=== PATIENT | male | born 1955 | race Caucasian/White ===

== ENCOUNTER 2017-05-29 08:31 | Day surgery (SDC) | payer OTHER ==
[2017-05-28 11:52] VITALS: BP 139/89
[2017-05-28 12:26] LABS: HEMATOCRIT 50.1 % (39.2-51.8); WHITE BLOOD COUNT 8.2 x10^3/uL (3.4-10)
[2017-05-28 12:34] LABS: BLOOD UREA NITROGEN 14 mg/dL (7-18)
[~2017-05-29] VITALS: Ht 170.2 cm; Wt 96.2 kg
[~2017-05-29 08:31] MED LIST: ASPI-621 PO; ATOR40TA78 PO; CHLO25TA PO; CHOL200024 PO; VALS80TA3 PO
[2017-05-29] MEDS ORDERED: SODIUM CHLORIDE 0.9% 1,000 ML IV ONE (08:41)
[2017-05-29] MEDS ORDERED: FENTANYL PF 100 MCG/2ML ONE (09:58)
[2017-05-29] MEDS ORDERED: MIDAZOLAM 1 MG/ML, 5ML ONE (09:58)
[2017-05-29] MEDS ORDERED: LIDOCAINE 2%, 20ML ONE (09:59)
[2017-05-29] MEDS ORDERED: SODIUM CHLORIDE 0.9% 1,000 ML IV SCH (10:50)
== END 2017-05-29 15:43 | disposition home or self-care (01) ==
LOC: CACL 08:31
PROVIDERS: ATTEND Internal Medicine Cardiovascular Disease
DX: I25.10 Atherosclerotic heart disease of native coronary artery without angina pectoris (principal); Z95.2 Presence of prosthetic heart valve; E78.5 Hyperlipidemia, unspecified; Z79.82 Long term (current) use of aspirin; Z88.0 Allergy status to penicillin; E66.01 Morbid (severe) obesity due to excess calories
CPT/HCPCS: 36415; 80048; 85025; 93454; 99156; 99157; C1769; C1894; J2250; J3010; J3490; Q9967

== ENCOUNTER 2017-07-11 04:38 | Inpatient (IN) | payer OTHER ==
[2017-07-10 14:18] LABS: BASOPHILS # (AUTO) 0.07 x10^3/uL (0-0.1); BASOPHILS % (AUTO) 1 % (0-1); EOSINOPHILS # (AUTO) 0.08 x10^3/uL (0-0.4); EOSINOPHILS % (AUTO) 1 % (1-7); LYMPHOCYTES # (AUTO) 2.91 x10^3/uL (1-3.4); LYMPHOCYTES % (AUTO) 29 % (22-44); MD NO; MEAN CORPUSCULAR HEMOGLOBIN 31.7 pg (27.5-34.5); MEAN CORPUSCULAR HGB CONC 33.7 g/dL (33.2-36.2); MEAN PLATELET VOLUME 8.4 fL (7.4-10.4); MONOCYTES # (AUTO) 0.71 x10^3/uL (0.2-0.8); MONOCYTES % (AUTO) 7 % (2-9); NEUTROPHILS # (AUTO) 6.25 x10^3/uL (1.8-6.8); NEUTROPHILS % (AUTO) 62 % (42-75); PLATELET COUNT 268 x10^3/uL (130-400); RED BLOOD COUNT 5.05 x10^6/uL (4.38-5.82); RED CELL DISTRIBUTION WIDTH 14.2 % (9.4-14.8)
[2017-07-10 14:26] LABS: INTERNATIONAL NORMALIZED RATIO 0.96 (0.93-1.1)
[2017-07-10 14:31] LABS: ALBUMIN 4.1 g/dL (3.4-5.0); ANION GAP 8 mmol/L (5-15); CALCIUM 9.3 mg/dL (8.5-10.1); CHLORIDE 101 mmol/L (98-107)
[2017-07-10 14:34] LABS: ALANINE AMINOTRANSFERASE 59 U/L (12-78); ALKALINE PHOSPHATASE 55 U/L (45-117); BILIRUBIN,TOTAL 0.7 mg/dL (0.2-1.0); CREATININE 0.98 mg/dL (0.7-1.3); TOTAL PROTEIN 7.8 g/dL (6.4-8.2)
[2017-07-10 14:34] LABS: MICROSCOPIC NOT IND
[2017-07-10 15:02] LABS: HEMOGLOBIN A1C 5.7 % (4.2-6.3)
[~2017-07-11] VITALS: Ht 170.2 cm; Wt 97.9 kg
[~2017-07-11 04:38] MED LIST changes: +LORA-856 PO
[2017-07-11] MEDS ORDERED: CHLORHEXIDINE MOUTHWASH 15 ML UDC MM SCH (05:00)
[2017-07-11] MEDS ORDERED: DO NOT GIVE MC SCH (05:00)
[2017-07-11 05:42] VITALS: BP_SYST 132; BP_SYST 133; BP_DIAS 81; BP_DIAS 85
[2017-07-11] MEDS ORDERED: INSULIN ASPART 100 UNITS/ML, PEN SQ-INSULIN SCH (06:00)
[2017-07-11] MEDS ORDERED: MIDAZOLAM 10MG/2 ML ONE (06:29)
[2017-07-11] MEDS ORDERED: FENTANYL PF 1000 MCG/20ML ONE (06:29)
[2017-07-11] MEDS ORDERED: POTASSIUM CHLORIDE 80 MEQ, SODIUM BICARBONATE 8.4% 10 MEQ, MAGNESIUM SULFATE 0.5 GM, LI... IV PRN (07:30)
[2017-07-11] MEDS ORDERED: MANNITOL PMX 20% 500 ML IVPB PRN (07:30)
[2017-07-11] MEDS ORDERED: VANCOMYCIN 1,400 MG in SODIUM CHLORIDE 0.9% 250 ML IV PRN (07:30)
[2017-07-11] MEDS ORDERED: DEXMEDETOMIDINE 200 MCG in SODIUM CHLORIDE 0.9% 48 ML IV SCH (07:30)
[2017-07-11] MEDS ORDERED: REGULAR INSULIN 62.5 UNITS in SODIUM CHLORIDE 0.9% 249.375 ML IV PRN ×2 (07:30→10:02)
[2017-07-11] MEDS ORDERED: ALBUMIN HUMAN 5% 500 ML IV PRN (07:30)
[2017-07-11] MEDS ORDERED: EPINEPHRINE 2 MG in SODIUM CHLORIDE 0.9% 248 ML IV SCH (07:30)
[2017-07-11] MEDS ORDERED: PHENYLEPHRINE 10 MG in SODIUM CHLORIDE 0.9% 249 ML IV PRN (07:30)
[2017-07-11] MEDS ORDERED: MUPIROCIN OINT 2%, 22GM TP SCH (09:00)
[2017-07-11] MEDS ORDERED: DOCUSATE 100 MG CAPSULE PO SCH (09:00)
[2017-07-11] MEDS ORDERED: SODIUM CHLORIDE FLUSH 10ML SYR IVF SCH (09:00)
[2017-07-11] MEDS ORDERED: EPINEPHRINE 1 MG/ML, 1ML ONE (09:37)
[2017-07-11] MEDS ORDERED: ROCURONIUM 10 MG/ML,10ML ONE (09:37)
[2017-07-11] MEDS ORDERED: PHENYLEPHRINE 10 MG/ML ONE ×3 (09:37→10:24)
[2017-07-11] MEDS ORDERED: PROTAMINE SULFATE 10 MG/ML, 25ML ONE ×2 (09:37)
[2017-07-11] MEDS ORDERED: PROPOFOL 10 MG/ML, 20ML ONE (09:37)
[2017-07-11] MEDS ORDERED: FENTANYL PF 250 MCG/5ML ONE (09:37)
[2017-07-11] MEDS ORDERED: SODIUM CHLORIDE 0.9% 1,000 ML IV PRN (10:02)
[2017-07-11] MEDS ORDERED: DEXMEDETOMIDINE 200 MCG in SODIUM CHLORIDE 0.9% 48 ML IV PRN (10:02)
[2017-07-11] MEDS ORDERED: NITROGLYCERIN/D5W PMX 240 ML IV PRN (10:02)
[2017-07-11] MEDS ORDERED: DOBUTAMINE 250 MG in SODIUM CHLORIDE 0.9% 230 ML IV PRN (10:02)
[2017-07-11] MEDS ORDERED: VASOPRESSIN 50 UNIT in SODIUM CHLORIDE 0.9% 250 ML IV PRN (10:02)
[2017-07-11] MEDS ORDERED: methylPREDNISolone SOD SUCC 125 MG/2 ML ONE (10:24)
[2017-07-11] MEDS ORDERED: LIDOCAINE 2% 100MG/5ML SYRINGE ONE (10:24)
[2017-07-11] MEDS ORDERED: SODIUM BICARB 8.4%, 50ML SYRINGE ONE (10:24)
[2017-07-11] MEDS ORDERED: ALBUMIN HUMAN 25% 50 ML ONE (10:25)
[2017-07-11] MEDS ORDERED: HEPARIN 1,000 UNITS/ML, 30ML ONE (10:25)
[2017-07-11 10:27] LABS: FIO2 60 %; GLUCOSE BY BLOOD GAS ANALYZER 156 mg/dL (70-110); HEMOGLOBIN BY BLOOD GAS ANALYZ 12.3 g/dL (14.0-18.0); POTASSIUM BY BLOOD GAS ANALYZR 3.6 mmol/L (3.6-5.5)
[2017-07-11] MEDS ORDERED: GLUCAGON 1 MG IM PRN (10:30)
[2017-07-11] MEDS ORDERED: INSULIN REGULAR 100 UNITS/ML, 3ML VIAL IVPush PRN (10:30)
[2017-07-11] MEDS ORDERED: BISACODYL 10 MG SUPP PR PRN (10:30)
[2017-07-11] MEDS ORDERED: SODIUM BICARB 8.4%, 50ML SYRINGE IV PRN (10:30)
[2017-07-11] MEDS ORDERED: DEXTROSE 4 GM TAB.CHEW PO PRN (10:30)
[2017-07-11] MEDS ORDERED: OXYcodone IR 5MG TABLET PO PRN (10:30)
[2017-07-11] MEDS ORDERED: morphine SULFATE 10 MG/ML, 1ML IVPush PRN (10:30)
[2017-07-11] MEDS ORDERED: DEXTROSE 50%, 50ML SYRINGE IVPush PRN (10:30)
[2017-07-11] MEDS ORDERED: ACETAMINOPHEN 650 MG SUPP PR PRN (10:30)
[2017-07-11] MEDS ORDERED: EPINEPHRINE 2 MG in SODIUM CHLORIDE 0.9% 248 ML IV PRN (10:30)
[2017-07-11] MEDS ORDERED: ONDANSETRON 2MG/ML, 2ML IVPush PRN (10:30)
[2017-07-11] MEDS ORDERED: ACETAMINOPHEN 325 MG TABLET PO PRN (10:30)
[2017-07-11] MEDS ORDERED: PROCHLORPERAZINE 5 MG/ML, 2ML IVPush PRN (10:30)
[2017-07-11] MEDS ORDERED: MIDAZOLAM 1 MG/ML, 5ML IVPush PRN (10:30)
[2017-07-11] MEDS ORDERED: BISACODYL 5 MG EC TABLET PO PRN (10:30)
[2017-07-11] MEDS: MAGNESIUM SULFATE 1 GM in SODIUM CHLORIDE 0.9% 50 ML IVPB SCH (10:56)
[2017-07-11] MEDS ORDERED: POTASSIUM CHLORIDE PMX 100 ML IV ONE ×2 (11:00→23:00)
[2017-07-11] MEDS: INSULIN ASPART 100 UNITS/ML, PEN SQ-INSULIN SCH ×3 (11:00→21:00)
[2017-07-11] MEDS: KSCALE TO 4.5 IV SCH ×3 (11:32→22:30)
[2017-07-11] MEDS: WARFARIN MODERAT DOSE PROTOCOL XX SCH (12:00)
[2017-07-11] MEDS: LACTATED RINGERS 1,000 ML IV PRN ×3 (12:38→20:45)
[2017-07-11] MEDS: HYDROcodone/APAP 10/325 MG TABLET PO PRN ×2 (15:34→19:47)
[2017-07-11] MEDS: VANCOMYCIN 1,500 MG in SODIUM CHLORIDE 0.9% 250 ML IV SCH (19:47)
[2017-07-11] MEDS: SODIUM CHLORIDE FLUSH 10ML SYR IVF SCH (20:22)
[2017-07-11] MEDS: MUPIROCIN OINT 2%, 22GM NAS SCH (20:23)
[2017-07-11] MEDS: KETOROLAC 30 MG/1 ML IVPush PRN (23:43)
[2017-07-12] MEDS ORDERED: INSULIN NPH HUMAN 100 UNIT/ML, 3ML VIAL SQ-INSULIN PRN (00:30)
[2017-07-12] MEDS ORDERED: INSULIN ASPART 100 UNITS/ML, PEN SQ-INSULIN PRN (01:00)
[2017-07-12] MEDS: HYDROcodone/APAP 10/325 MG TABLET PO PRN ×3 (04:23→20:56)
[2017-07-12] MEDS: KSCALE TO 4.5 IV SCH (04:30)
[2017-07-12 04:54] LABS: BASOPHILS # (AUTO) 0.03 x10^3/uL (0-0.1); BASOPHILS % (AUTO) 0 % (0-1); EOSINOPHILS % (AUTO) 0 % (1-7); LYMPHOCYTES # (AUTO) 1.01 x10^3/uL (1-3.4); LYMPHOCYTES % (AUTO) 7 % (22-44); MD NO; MEAN CORPUSCULAR HEMOGLOBIN 32.1 pg (27.5-34.5); MEAN CORPUSCULAR HGB CONC 34.1 g/dL (33.2-36.2); MEAN CORPUSCULAR VOLUME 94.1 fL (81-97); MEAN PLATELET VOLUME 8.9 fL (7.4-10.4); MONOCYTES # (AUTO) 0.86 x10^3/uL (0.2-0.8); MONOCYTES % (AUTO) 6 % (2-9); NEUTROPHILS # (AUTO) 12.35 x10^3/uL (1.8-6.8); NEUTROPHILS % (AUTO) 87 % (42-75); PLATELET COUNT 149 x10^3/uL (130-400); RED BLOOD COUNT 4.21 x10^6/uL (4.38-5.82); RED CELL DISTRIBUTION WIDTH 13.9 % (9.4-14.8)
[2017-07-12 04:56] LABS: INTERNATIONAL NORMALIZED RATIO 1.03 (0.93-1.1); PROTHROMBIN TIME 10.7 Seconds (9.6-11.5)
[2017-07-12 05:05] LABS: ALBUMIN 3.4 g/dL (3.4-5.0); ANION GAP 7 mmol/L (5-15); CALCIUM 8.2 mg/dL (8.5-10.1); CHLORIDE 106 mmol/L (98-107); CREATININE 0.63 mg/dL (0.7-1.3)
[2017-07-12] MEDS: KETOROLAC 30 MG/1 ML IVPush PRN ×2 (05:50→15:41)
[2017-07-12] MEDS ORDERED: POTASSIUM CHLORIDE PMX 100 ML IV ONE (06:00)
[2017-07-12] MEDS: INSULIN ASPART 100 UNITS/ML, PEN SQ-INSULIN SCH ×4 (07:00→20:53)
[2017-07-12] MEDS: VANCOMYCIN 1,500 MG in SODIUM CHLORIDE 0.9% 250 ML IV SCH (08:36)
[2017-07-12] MEDS: ASPIRIN 81 MG TABLET EC PO SCH (08:36)
[2017-07-12] MEDS: MUPIROCIN OINT 2%, 22GM NAS SCH ×2 (08:36→20:56)
[2017-07-12] MEDS: METOPROLOL TARTRATE 25 MG TABLET PO/NG SCH ×2 (08:37→20:54)
[2017-07-12] MEDS: WARFARIN BIOPROSTHETIC VALVE PROTOCOL 2-3 XX SCH (08:37)
[2017-07-12] MEDS: SODIUM CHLORIDE FLUSH 10ML SYR IVF SCH ×2 (08:38→20:56)
[2017-07-12] MEDS: MAGNESIUM SULFATE 1 GM in SODIUM CHLORIDE 0.9% 50 ML IVPB SCH (10:47)
[2017-07-12] MEDS: WARFARIN MODERAT DOSE PROTOCOL XX SCH (12:00)
[2017-07-12 14:36] VITALS: BP 103/70
[2017-07-12] MEDS ORDERED: WARFARIN 7.5 MG TABLET PO-COUM ONE (18:00)
[2017-07-12 18:34] VITALS: BP 103/67
[2017-07-12] MEDS: CHLORHEXIDINE MOUTHWASH 15 ML UDC MM SCH (21:15)
[2017-07-13 01:27] VITALS: BP 112/74
[2017-07-13] MEDS: HYDROcodone/APAP 10/325 MG TABLET PO PRN (01:47)
[2017-07-13 05:59] LABS: INTERNATIONAL NORMALIZED RATIO 0.93 (0.93-1.1); PROTHROMBIN TIME 9.7 Seconds (9.6-11.5)
[2017-07-13 06:00] LABS: BASOPHILS # (AUTO) 0.03 x10^3/uL (0-0.1); BASOPHILS % (AUTO) 0 % (0-1); EOSINOPHILS # (AUTO) 0.02 x10^3/uL (0-0.4); EOSINOPHILS % (AUTO) 0 % (1-7); LYMPHOCYTES # (AUTO) 1.98 x10^3/uL (1-3.4); LYMPHOCYTES % (AUTO) 19 % (22-44); MD NO; MEAN CORPUSCULAR HEMOGLOBIN 31.9 pg (27.5-34.5); MEAN CORPUSCULAR HGB CONC 33.8 g/dL (33.2-36.2); MEAN CORPUSCULAR VOLUME 94.6 fL (81-97); MEAN PLATELET VOLUME 8.8 fL (7.4-10.4); MONOCYTES # (AUTO) 0.66 x10^3/uL (0.2-0.8); MONOCYTES % (AUTO) 6 % (2-9); NEUTROPHILS # (AUTO) 7.83 x10^3/uL (1.8-6.8); NEUTROPHILS % (AUTO) 74 % (42-75); PLATELET COUNT 132 x10^3/uL (130-400); RED BLOOD COUNT 4.13 x10^6/uL (4.38-5.82); RED CELL DISTRIBUTION WIDTH 14.2 % (9.4-14.8)
[2017-07-13 06:01] LABS: ANION GAP 8 mmol/L (5-15); CALCIUM 8.3 mg/dL (8.5-10.1); CHLORIDE 104 mmol/L (98-107); CREATININE 0.86 mg/dL (0.7-1.3)
[2017-07-13] MEDS: KETOROLAC 30 MG/1 ML IVPush PRN ×3 (06:32→22:20)
[2017-07-13] MEDS: INSULIN ASPART 100 UNITS/ML, PEN SQ-INSULIN SCH ×4 (07:00→21:00)
[2017-07-13 07:05] VITALS: BP 113/75
[2017-07-13] MEDS: ASPIRIN 81 MG TABLET EC PO SCH (08:47)
[2017-07-13] MEDS: CHLORHEXIDINE MOUTHWASH 15 ML UDC MM SCH ×2 (08:47→22:24)
[2017-07-13] MEDS: MUPIROCIN OINT 2%, 22GM NAS SCH ×2 (08:47→22:24)
[2017-07-13] MEDS: POTASSIUM CHLORIDE 10 MEQ TABLET.ER PO SCH (08:47)
[2017-07-13] MEDS: FUROSEMIDE 20 MG/2 ML IV SCH (08:47)
[2017-07-13] MEDS: METOPROLOL TARTRATE 25 MG TABLET PO/NG SCH ×2 (08:48→22:26)
[2017-07-13] MEDS: ENOXAPARIN 40 MG/0.4 ML SQ SCH (08:48)
[2017-07-13] MEDS: SODIUM CHLORIDE FLUSH 10ML SYR IVF SCH ×2 (08:49→22:24)
[2017-07-13] MEDS: WARFARIN BIOPROSTHETIC VALVE PROTOCOL 2-3 XX SCH (08:49)
[2017-07-13] MEDS: MAGNESIUM SULFATE 1 GM in SODIUM CHLORIDE 0.9% 50 ML IVPB SCH (11:38)
[2017-07-13] MEDS: WARFARIN MODERAT DOSE PROTOCOL XX SCH (11:44)
[2017-07-13 13:05] VITALS: BP 117/68
[2017-07-13] MEDS ORDERED: WARFARIN 7.5 MG TABLET PO-COUM ONE (18:00)
[2017-07-13 19:40] VITALS: BP 119/77
[2017-07-14 02:00] VITALS: BP 129/83
[2017-07-14 05:45] LABS: ANION GAP 7 mmol/L (5-15); CALCIUM 8.1 mg/dL (8.5-10.1); CHLORIDE 106 mmol/L (98-107)
[2017-07-14] MEDS: KETOROLAC 30 MG/1 ML IVPush PRN ×3 (06:03→20:43)
[2017-07-14] MEDS: INSULIN ASPART 100 UNITS/ML, PEN SQ-INSULIN SCH ×4 (07:00→20:46)
[2017-07-14 08:15] VITALS: BP 128/82
[2017-07-14] MEDS: WARFARIN BIOPROSTHETIC VALVE PROTOCOL 2-3 XX SCH (08:18)
[2017-07-14] MEDS: SODIUM CHLORIDE FLUSH 10ML SYR IVF SCH ×2 (08:32→20:46)
[2017-07-14] MEDS: FUROSEMIDE 20 MG/2 ML IV SCH (08:32)
[2017-07-14] MEDS: CHLORHEXIDINE MOUTHWASH 15 ML UDC MM SCH ×2 (08:33→20:43)
[2017-07-14] MEDS: METOPROLOL TARTRATE 25 MG TABLET PO/NG SCH ×2 (08:33→20:43)
[2017-07-14] MEDS: MUPIROCIN OINT 2%, 22GM NAS SCH ×2 (08:33→20:42)
[2017-07-14] MEDS: ASPIRIN 81 MG TABLET EC PO SCH (08:33)
[2017-07-14] MEDS: ENOXAPARIN 40 MG/0.4 ML SQ SCH ×2 (08:34→17:04)
[2017-07-14 09:50] LABS: INTERNATIONAL NORMALIZED RATIO 1.01 (0.93-1.1); PROTHROMBIN TIME 10.5 Seconds (9.6-11.5)
[2017-07-14] MEDS: WARFARIN MODERAT DOSE PROTOCOL XX SCH (11:01)
[2017-07-14] MEDS ORDERED: DOCUSATE 100 MG CAPSULE PO PRN (13:00)
[2017-07-14] MEDS: POTASSIUM CHLORIDE 10 MEQ TABLET.ER PO SCH (13:01)
[2017-07-14 15:00] VITALS: BP 128/68
[2017-07-14] MEDS ORDERED: WARFARIN 3 MG TABLET PO-COUM ONE (18:00)
[2017-07-14 20:33] VITALS: BP 129/76
[2017-07-15 02:36] VITALS: BP 126/85
[2017-07-15 05:48] LABS: INTERNATIONAL NORMALIZED RATIO 1.16 (0.93-1.1)
[2017-07-15 05:56] LABS: ANION GAP 9 mmol/L (5-15); CALCIUM 8.6 mg/dL (8.5-10.1); CHLORIDE 106 mmol/L (98-107); CREATININE 0.82 mg/dL (0.7-1.3)
[2017-07-15] MEDS: KETOROLAC 30 MG/1 ML IVPush PRN (06:22)
[2017-07-15] MEDS: INSULIN ASPART 100 UNITS/ML, PEN SQ-INSULIN SCH ×2 (07:00→11:00)
[2017-07-15] MEDS: WARFARIN BIOPROSTHETIC VALVE PROTOCOL 2-3 XX SCH (08:14)
[2017-07-15 08:50] VITALS: BP 126/84
[2017-07-15] MEDS: CHLORHEXIDINE MOUTHWASH 15 ML UDC MM SCH (08:53)
[2017-07-15] MEDS: POTASSIUM CHLORIDE 10 MEQ TABLET.ER PO SCH (08:53)
[2017-07-15] MEDS: MUPIROCIN OINT 2%, 22GM NAS SCH (08:53)
[2017-07-15] MEDS: ASPIRIN 81 MG TABLET EC PO SCH (08:53)
[2017-07-15] MEDS: SODIUM CHLORIDE FLUSH 10ML SYR IVF SCH (08:53)
[2017-07-15] MEDS: ENOXAPARIN 40 MG/0.4 ML SQ SCH (08:54)
[2017-07-15] MEDS: METOPROLOL TARTRATE 25 MG TABLET PO/NG SCH (08:54)
[2017-07-15] MEDS ORDERED: FUROSEMIDE 20 MG TABLET PO SCH (09:00)
[2017-07-15] MEDS ORDERED: WARF10TA PO-COUM (11:10)
[2017-07-15] MEDS ORDERED: METO25TA35 PO/NG (11:10)
[2017-07-15] MEDS ORDERED: DICL50TA4 PO (11:16)
[2017-07-15] MEDS ORDERED: DICLOFENAC 50 MG TABLET.DR PO PRN (11:30)
[2017-07-15] MEDS: WARFARIN MODERAT DOSE PROTOCOL XX SCH (12:00)
[2017-07-15] MEDS ORDERED: WARFARIN 10 MG TABLET PO-COUM ONE (18:00)
== END 2017-07-15 13:29 | disposition home or self-care (01) | DRG 219 ==
LOC: 5SO 04:38 → CSU 08:01 → 5SO 07-12 14:20
PROVIDERS: ADMIT Thoracic Surgery (Cardiothoracic Vascular Surgery); ATTEND Thoracic Surgery (Cardiothoracic Vascular Surgery)
PROC: 5A1221Z Performance of Cardiac Output, Continuous (ICD-10-PCS; 2017-07-11)
PROC: B246ZZ4 Ultrasonography of Right and Left Heart, Transesophageal (ICD-10-PCS; 2017-07-11)
PROC: 02RF0JZ Replacement of Aortic Valve with Synthetic Substitute, Open Approach (ICD-10-PCS; principal; 2017-07-11 07:30)
DX: I35.0 Nonrheumatic aortic (valve) stenosis (principal); J96.00 Acute respiratory failure, unspecified whether with hypoxia or hypercapnia; I46.9 Cardiac arrest, cause unspecified; I44.2 Atrioventricular block, complete; E11.9 Type 2 diabetes mellitus without complications; E78.5 Hyperlipidemia, unspecified; F17.200 Nicotine dependence, unspecified, uncomplicated; I10 Essential (primary) hypertension; E66.9 Obesity, unspecified; I70.0 Atherosclerosis of aorta; Z90.49 Acquired absence of other specified parts of digestive tract; Z88.0 Allergy status to penicillin; Z68.33 Body mass index [BMI] 33.0-33.9, adult
CPT/HCPCS: 36415; 36600; 71045; 71046; 80048; 80053; 81003; 82040; 82330; 82800; 82803; 82810; 82947; 82962; 83036; 83735; 84132; 84295; 85014; 85018; 85025; 85049; 85347; 85610; 85730; 86850; 86900; 86923; 87081; 88305; 93005; 93312; 93321; 93325; 93880; 94002; 94150; C1768; J0171; J1644; J1650; J1815; J1885; J2250; J2704; J2720; J3010; J3370; J3475; J3480; J3490; P9045; P9047; C1751; C1760; J1940; J2370; J2930; J7050; J7120

== ENCOUNTER → 2020-01-12 | Outpatient (CLI) | payer OTHER ==
[~2020-01-12] MED LIST changes: -ASPI-621 PO; +ASPI81TA45 PO; +DICL50TA4 PO; +METO25TA35 PO/NG; +WARF10TA PO-COUM
== END | disposition home or self-care (01) ==
LOC: CFH 06:59
PROVIDERS: ATTEND Internal Medicine Cardiovascular Disease
DX: R94.31 Abnormal electrocardiogram [ECG] [EKG] (principal); I10 Essential (primary) hypertension; I25.10 Atherosclerotic heart disease of native coronary artery without angina pectoris; I35.0 Nonrheumatic aortic (valve) stenosis
CPT/HCPCS: 93306

== ENCOUNTER → 2020-02-11 | Outpatient (CLI) | payer OTHER ==
[~2020-02-11] MED LIST changes: +REGADENOSON 0.4 MG/5 ML SYRINGE ONE
== END | disposition home or self-care (01) ==
LOC: CFH 07:53
PROVIDERS: ATTEND Internal Medicine Cardiovascular Disease
DX: I44.7 Left bundle-branch block, unspecified (principal); I35.0 Nonrheumatic aortic (valve) stenosis; R94.31 Abnormal electrocardiogram [ECG] [EKG]; I25.10 Atherosclerotic heart disease of native coronary artery without angina pectoris; I10 Essential (primary) hypertension
CPT/HCPCS: 78452; 93017; A9502; J2785

== ENCOUNTER → 2021-01-11 | Outpatient (CLI) | payer BC ==
[~2021-01-11] MED LIST changes: -REGADENOSON 0.4 MG/5 ML SYRINGE ONE
== END | disposition home or self-care (01) ==
LOC: CFH 07:25
PROVIDERS: ATTEND Internal Medicine Cardiovascular Disease
DX: I36.1 Nonrheumatic tricuspid (valve) insufficiency (principal); I11.9 Hypertensive heart disease without heart failure
CPT/HCPCS: 93306